=== PATIENT | female | born 1970 | race Caucasian/White ===

== ENCOUNTER 2019-10-06 15:07 | Emergency (ER) | payer OTHER, MEDICARE ==
[2019-10-06 15:11] VITALS: BP 146/90; PULSE 79
[2019-10-06] MEDS ORDERED: Sodium Chloride 0.9% 10 ML Syringe FLUSH PRN (15:23)
--- NOTE | 2019-10-06 15:59 | EDM.PDOC ---
ED HPI GENERAL MEDICAL PROBLEM - General Chief Complaint: Chest Pain Stated Complaint: [facility] Time Seen by Provider: 10/06/19 15:23 Source of Information: Reports: Patient, RN Notes Reviewed History Limitations: Reports: No Limitations - History of Present Illness INITIAL COMMENTS - FREE TEXT/NARRATIVE: Patient is a 49-year-old female who presents to the ED via [facility] for evaluation of her chest discomfort and pressure. Patient states that she was at work, when she felt like there was a 500 pound weight sitting on her chest, she states that this did feel like it went straight through to her back. She did not have any sort of lightheadedness or dizziness or had any diaphoresis at this time. But she has not felt pain like this before. She states that she was having difficulty speaking and states it was very hard to talk without losing her breath easily. Patient was given nitro x1 and also 324 mg of aspirin, and she believes that the nitro did seem to help a little bit of her chest discomfort. Patient notes that she is a smoker, but is on Chantix and is trying to quit smoking. Patient denies any other past medical heart or lung history, but she states she did have a virus in April, that states that she was having residual dyspnea issues with, she states that she is scheduled to see a country manager soon. Patient denies any sort of problems with blood clots in the past, she denies any sort of fever/chills, nausea/vomiting/diarrhea, cough, she does state that she does have dyspnea but it is worsened by exercise and talking seems to make it worse. She is not experienced this at rest. Of note patient's O2 sats are 98% on room air. Patient further denies any sort increased stress or anxiety that she has had at home. 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 (see below) Other Treatments TECHNICAL MARKETING CONSULTANT: nitro-asa Chest Pain Score (Numeric/FACES): 1 - Related Data Allergies Allergy/AdvReac Type Severity Reaction Status Date / Time cephalexin monohydrate Allergy Severe Rash Verified 10/06/19 15:17 [From Keflex] codeine Allergy Severe Headache Verified 10/06/19 15:17 iodine Allergy Severe Airway Verified 10/06/19 15:17 Tightness morphine Allergy Severe Headache Verified 10/06/19 15:17 Penicillins Allergy Severe Rash Verified 10/06/19 15:17 anti-inflammatory Allergy Severe Paralysis Uncoded 10/06/19 15:17 Home Meds: Home Meds B12/Levomefolate Calcium/B-6 [Foltx Tablet] 1 tab PO DAILY 02/23/15 [History] Bifidobacterium Infantis [Align] 1 tab PO DAILY 02/23/15 [History] Biotin 1 tab PO DAILY 02/23/15 [History] Cyclobenzaprine [Flexeril] 1 tab PO BID PRN 02/23/15 [History] Ondansetron [Zofran ODT] 4 mg PO Q6H PRN #10 tab.dis 02/23/15 [Rx] Potassium 1 tab PO DAILY 02/23/15 [History] Pregabalin [Lyrica] 1 tab PO BID 02/23/15 [History] Sennosides [Senna] 1 tab PO DAILY 02/23/15 [History] Vit E/Cu/Keyla/Zinc/Pygeum/Saw P [Prostamen Softgel] 1 tab PO DAILY 02/23/15 [History] oxyCODONE 1 tab PO BID PRN 02/23/15 [History] oxyCODONE HCl [Oxycontin] 1 tab PO TID 02/23/15 [History] Magnesium Chloride [Slow-Mag] 71.5 mg PO DAILY #5 tablet. 10/06/19 [Rx] Past Medical History HEENT History: Reports: Impaired Vision Other HEENT History: wears glasses Respiratory History: Reports: Pneumonia, Recurrent, SOB, Other (See Below) Other Respiratory History: cough Musculoskeletal History: Reports: Other (See Below) Other Musculoskeletal History: spine issues Social & Family History - Tobacco Use Smoking Status *Q: Current Every Day Smoker Years of Tobacco use: 30 Packs/Tins Daily: 0.4 Tobacco Use Comment: is on Chantix to try to stop smoking - Caffeine Use Caffeine Use: Reports: Coffee - Recreational Drug Use Recreational Drug Use: No ED ROS GENERAL - Review of Systems Review Of Systems: Comprehensive ROS is negative, except as noted in HPI. ED EXAM, GENERAL - Physical Exam Exam: See Below Exam Limited By: No Limitations General Appearance: Alert, WD/WN, No Apparent Distress Eye Exam: Bilateral Eye: EOMI, Normal Inspection, PERRL Nose: Normal Inspection Throat/Mouth: Normal Inspection, Normal Lips, Normal Teeth, Normal Gums, Normal Oropharynx, Normal Voice, No Airway Compromise Head: Atraumatic, Normocephalic Neck: Normal Inspection Respiratory/Chest: No Respiratory Distress, Lungs Clear, Normal Breath Sounds, No Accessory Muscle Use, Chest Non-Tender Cardiovascular: Normal Peripheral Pulses, Regular Rate, Rhythm, No Murmur GI/Abdominal: Normal Bowel Sounds, Soft, Non-Tender, No Distention, No Mass Extremities: Normal Inspection, Normal Capillary Refill Neurological: Alert, Oriented, Normal Cognition, No Motor/Sensory Deficits Psychiatric: Normal Affect, Normal Mood Skin Exam: Warm, Dry, Intact, Normal Color, No Rash EKG INTERPRETATION EKG Date: 10/06/19 Time: 15:31 Rhythm: NSR Rate (Beats/Min): 73 [place]: Normal P-Wave: Present QRS: Normal ST-T: Normal QT: Normal Comparison: NA - No Prior EKG EKG Interpretation Comments: No obvious ischemia or acute ST changes noted, reviewed by myself and Dr. Richmond. He did appreciate some left atrial hypertrophy. Course - Vital Signs Last Recorded V/S: Last Vital Signs Temp 99.2 F 10/06/19 15:10 Pulse 79 10/06/19 15:10 Resp 13 10/06/19 15:10 BP 146/90 H 10/06/19 15:10 Pulse Ox 98 10/06/19 15:10 - Orders/Labs/Meds Orders: Active Orders 24 hr Category Date Time Status EKG Documentation Completion [RC] STAT Care 10/06/19 15:23 Active Peripheral IV Care [RC] . DIRECTED Care 10/06/19 15:23 Active Sodium Chloride 0.9% [Saline Flush] Med 10/06/19 15:23 Active 10 ml FLUSH ASDIRECTED PRN Peripheral IV Insertion Adult [OM.PC] Stat Oth 10/06/19 15:23 Ordered Medication Orders Sodium Chloride (Saline Flush) 10 ml FLUSH ASDIRECTED PRN PRN Reason: Keep Vein Open Last Admin: 10/06/19 15:50 Dose: 10 ml Documented by: RAMANA Labs: Laboratory Tests 10/06/19 10/06/19 10/06/19 Range/Units 15:45 15:45 15:45 WBC 6.28 (3.98-10.04) K/mm3 RBC 4.93 (3.98-5.22) M/mm3 Hgb 14.6 D (11.2-15.7) gm/dl Hct 43.4 (34.1-44.9) % MCV 88.0 (79.4-94.8) fl MCH 29.6 (25.6-32.2) pg MCHC 33.6 (32.2-35.5) g/dl RDW Std Deviation 38.1 (36.4-46.3) fL Plt Count 267 D (182-369) K/mm3 MPV 9.0 L (9.4-12.3) fl Neutrophils % (Manual) 47 (40-60) % Band Neutrophils % 0 (0-10) % Lymphocytes % (Manual) 42 H (20-40) % Atypical Lymphs % 0 % Monocytes % (Manual) 8 (2-10) % Eosinophils % (Manual) 3 (0.7-5.8) % Basophils % (Manual) 0 L (0.1-1.2) Platelet Estimate Adequate RBC Morph Comment Normal PT 10.5 (9.7-12.0) SECONDS INR 0.96 APTT 28 (22-31) SECONDS D-Dimer, Quantitative < 0.19 L (0.19-0.50) mg/L Sodium 144 (136-145) mEq/L Potassium 3.2 L (3.5-5.1) mEq/L Chloride 104 (98-107) mEq/L Carbon Dioxide 28 (21-32) mEq/L Anion Gap 15.2 H (5-15) BUN 13 (7-18) mg/dL Creatinine 0.8 (0.55-1.02) mg/dL Est Cr Clr Drug Dosing 66.54 mL/min Estimated GFR (MDRD) > 60 (>60) mL/min BUN/Creatinine Ratio 16.3 (14-18) Glucose 100 (74-106) mg/dL Calcium 9.4 (8.5-10.1) mg/dL Magnesium 1.7 L (1.8-2.4) mg/dl Total Bilirubin 0.5 (0.2-1.0) mg/dL AST 16 (15-37) U/L ALT 17 (14-59) U/L Alkaline Phosphatase 46 (46-116) U/L Troponin I < 0.017 (0.00-0.056) ng/mL Total Protein 7.7 (6.4-8.2) g/dl Albumin 4.2 (3.4-5.0) g/dl Globulin 3.5 gm/dL Albumin/Globulin Ratio 1.2 (1-2) Meds: Medications Generic Name Dose Route Start Last Admin Trade Name Elioq PRN Reason Stop Dose Admin Sodium Chloride 10 ml 10/06/19 15:23 10/06/19 15:50 Saline Flush FLUSH 10 ml ASDIRECTED PRN Administration Keep Vein Open - Re-Assessments/Exams Free Text/Narrative Re-Assessment/Exam: 10/06/19 15:59 Patient presents to the ED for evaluation of her chest discomfort. Have ordered labs, EKG and a chest x-ray for further evaluation. 10/06/19 16:33 Patient's laboratory evaluation demonstrates a mildly low potassium, and magnesium level of 1.7. She is already taking potassium in her home regimen, I will provide her with oral magnesium supplementation, so her potassium can get absorbed in her body. D-dimer is undetectable, troponin is negative, other laboratory evaluation is unremarkable. Patient be discharged home with general recommendation. Departure - Departure Time of Disposition: 16:34 Disposition: Home, Self-Care 01 Condition: Good Clinical Impression: Pressure in chest, Hypomagnesemia, Hypokalemia Prescriptions: Magnesium Chloride [Slow-Mag] 71.5 mg PO DAILY #5 tablet. Instructions: Hypomagnesemia, Potassium Content of Foods, Nonspecific Chest Pain, Adult, [id number] Forms: ED Department Discharge Additional Instructions: You have been evaluated in the ER for your chest pressure/discomfort. Your work-up in the ER is non-demonstrative of any sort of cardiac etiology, your EKG was within normal limits, your chest x-ray was within normal limits, laboratory evaluation demonstrates that you are not suffering from a pulmonary embolus or a heart attack at today's visit. Your potassium is mildly low, and your magnesium was mildly low. You will be given a few tablets of magnesium for supplementation, as your body needs magnesium to absorb the potassium. Please keep your appointment with pulmonology for further evaluation of your dyspnea. Please return to the ER at any time if your symptoms change or worsen. Sepsis Event Note (ED) - Evaluation Sepsis Screening Result: No Definite Risk - Focused Exam Vital Signs: Vital Signs Temp Pulse Resp BP Pulse Ox 10/06/19 15:10 99.2 F 79 13 146/90 H 98 - My Orders Last 24 Hours: My Active Orders 10/06/19 15:23 EKG Documentation Completion [RC] STAT Peripheral IV Care [RC] . DIRECTED Sodium Chloride 0.9% [Saline Flush] 10 ml FLUSH ASDIRECTED PRN Peripheral IV Insertion Adult [OM.PC] Stat - Assessment/Plan Last 24 Hours: My Active Orders 10/06/19 15:23 EKG Documentation Completion [RC] STAT Peripheral IV Care [RC] . DIRECTED Sodium Chloride 0.9% [Saline Flush] 10 ml FLUSH ASDIRECTED PRN Peripheral IV Insertion Adult [OM.PC] Stat
--- NOTE | 2019-10-06 16:10 | CR ---
Chest: 2 views of the chest were obtained. Comparison: No previous chest imaging is available. Heart size and mediastinum are normal. Lungs are clear with no acute parenchymal change. Compression deformity is seen within the mid thoracic spine which appears old. Impression: 1. Nothing acute is seen on 2 view chest x-ray. Diagnostic code #2 This report was dictated in MDT
== END 2019-10-06 16:50 | disposition home or self-care (01) ==
LOC: JD.ED 15:07
DX: R07.89 Other chest pain (principal); E83.42 Hypomagnesemia; E87.6 Hypokalemia; F17.210 Nicotine dependence, cigarettes, uncomplicated; Z88.5 Allergy status to narcotic agent; Z88.0 Allergy status to penicillin; Z88.1 Allergy status to other antibiotic agents; Z88.8 Allergy status to other drugs, medicaments and biological substances; Z88.6 Allergy status to analgesic agent; Z79.899 Other long term (current) drug therapy
CPT/HCPCS: 36415; 71046; 71046-26; 80053; 83735; 84484; 85007; 85027; 85379; 85610; 85730; 93005; 99285-25